=== PATIENT | male | born 1960 | race Caucasian/White ===

== ENCOUNTER 2016-11-28 13:38 | Emergency (ER) | payer MEDICARE, OTHER ==
--- NOTE | ~2016-11-28 | CR229 ---
[facility] A Service of [facility] & [facility] RADIOLOGY TEXT RESULTS PATIENT: PRISCILA DAUGHERTY LOCATION: CFTX : 62 UNIT #: [id number] AGE: [address]: Keyonna Mitchell APRN SEX: M ORDER DR: [id number] [facility] [address] [place], [place] [address] [id number] E MR#: [id number] #: [id number] NAME: PRISCILA DAUGHERTY. : 1960 SEX: M STUDY DATE/TIME: 11/28/2016 15:28 UNIT: [facility] ROOM: STUDY DESCRIPTION: CR Shoulder Min 2 View Lt Attending Physician: Keyonna Mitchell A.P.R.N. Ordering Physician: Ed Doctor [id number] [facility] Primary Care Physician: Primary Care Physician No MEDICAL IMAGING REPORT This report is preliminary unless electronic signature is present EXAM Left shoulder 11/28 INDICATIONS Shoulder pain for the last 7 days. Patient over worked. No focal trauma. FINDINGS 3 views of the left shoulder were obtained. There is no fracture or dislocation. There is no AC joint separation. No significant spurring is seen in the shoulder. Note is made of emphysema in the left lung. IMPRESSION Negative left shoulder. Dictated by... Priscila Lozada Jr., M.D. THIS IS AN ELECTRONICALLY VERIFIED REPORT Priscila Lozada Jr., M.D. at 11/30/2016 7:22 AM NAHOMI/shani TD: 11/29/2016 09:16 JOB #: [id number] MEDICAL IMAGING REPORT Page 1 of 1 COPY
[~2016-11-28 13:38] MED LIST: AUGMENTIN PO; BRIMONIDINE TART5 ML; CEFTIN; CIPRO PO; CLINDAMYCIN HC300 MG PO; FLAGYL PO; LORTAB 5/500 TA1 TA1 PO; NO MEDICATIONS; PERCOCET; PERCOCET 5-3251 TAB PO; PHENERGAN25 MG; PREDNISONE10 MG/DOSE; TOBRADEX EYE DRO5 ML OP; TYLENOL #3 PO; VICODIN 5/1 TAB 5/50 PO; ZOFRAN PO
== END 2016-11-28 16:51 | disposition home or self-care (01) ==
LOC: CFTX 13:38 → CED 13:38 → CFTX 15:36
DX: S46.912A Strain of unspecified muscle, fascia and tendon at shoulder and upper arm level, left arm, initial encounter (principal); H40.9 Unspecified glaucoma; F17.210 Nicotine dependence, cigarettes, uncomplicated; Z88.6 Allergy status to analgesic agent; Z91.041 Radiographic dye allergy status; X58.XXXA Exposure to other specified factors, initial encounter; Y93.89 Activity, other specified; Y92.009 Unspecified place in unspecified non-institutional (private) residence as the place of occurrence of the external cause
CPT/HCPCS: 73030; 99283